=== PATIENT | male | born 1995 | race Hispanic/Latino ===

== ENCOUNTER 2024-10-12 10:37 | Emergency (ER) | payer BC ==
[~2024-10-12] VITALS: Ht 167.6 cm; Wt 82.4 kg
[2024-10-12 12:26] LABS: INFLUENZA B NAA NEGATIVE (NEGATIVE); RESPIRATORY SYNCYTIAL VIR NAA NEGATIVE (NEGATIVE)
[2024-10-12 13:36] VITALS: BP 124/85
== END 2024-10-12 13:36 | disposition home or self-care (01) ==
LOC: ED 10:37
PROVIDERS: Emergency Medicine
DX: J20.8 Acute bronchitis due to other specified organisms (principal); J45.909 Unspecified asthma, uncomplicated; Z91.018 Allergy to other foods
CPT/HCPCS: 87502; 99283; U0002